=== PATIENT | male | born 2000 | race American Indian/Alaskan Native ===

== ENCOUNTER 2021-10-29 00:20 | Emergency (ER) | payer OTHER ==
[2021-10-29] MEDS ORDERED: MORPHINE 2 MG/1 ML INJ IM ONE (00:55)
[2021-10-29] MEDS ORDERED: SODIUM CHLORIDE 0.9% 1000 ML 2,000 ML IV ONE (00:55)
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
[2021-10-29 02:12] LABS: Hematocrit 35.8 % (35.5-45.6); Mean Corpuscular HGB Conc 34 % (32-34); Mean Corpuscular Volume 84 fl (84-94); Platelet Count 240 K/mm3 (140-440); Red Blood Count 4.28 M/mm3 (3.65-5.03); Red Cell Distribution Width 15.3 % (13.2-15.2)
[2021-10-29 02:21] LABS: Alanine Aminotransferase 16 units/L (7-56); Albumin 4.4 g/dL (3.9-5); Blood Urea Nitrogen 12 mg/dL (9-20); Calcium 8.2 mg/dL (8.4-10.2); Hemolysis Index 21
[2021-10-29 02:28] LABS: BUN/Creatinine Ratio 24
[2021-10-29 03:01] VITALS: BP 110/65
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
[2021-10-29] MEDS ORDERED: MORPHINE 2 MG/1 ML INJ ONE (03:18)
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
[2021-10-29] MEDS ORDERED: MORPHINE 2 MG/1 ML INJ IV ONE (03:24)
[2021-10-29 04:07] LABS: Mucus,Urine FEW /HPF
[2021-10-29 04:11] LABS: Amphetamine Screen,Urine PRESUMPTIVE NEGATIVE; Benzodiazepines Screen,Urine PRESUMPTIVE NEGATIVE; Cannabinoid Screen,Urine PRESUMPTIVE POSITIVE; Cocaine Screen,Urine PRESUMPTIVE NEGATIVE; Methadone Screen,Urine PRESUMPTIVE NEGATIVE; Opiate Screen,Urine PRESUMPTIVE NEGATIVE
[2021-10-29 04:34] LABS: Color,Urine Yellow (Yellow)
[2021-10-29 04:35] LABS: WBC,Urine < 1.0 /HPF (0.0-6.0)
== END 2021-10-29 05:31 ==
LOC: ED 00:20 → EEVIPCON 00:20 → ED 05:31
DX: F12.280 Cannabis dependence with cannabis-induced anxiety disorder (principal); Z98.890 Other specified postprocedural states; Z79.899 Other long term (current) drug therapy; V87.7XXA Person injured in collision between other specified motor vehicles (traffic), initial encounter; Y93.89 Activity, other specified; Y92.488 Other paved roadways as the place of occurrence of the external cause; Y99.8 Other external cause status
CPT/HCPCS: 36415; 70450; 71260; 72125; 74177; 80053; 80307; 81001; 82550; 83690; 84484; 85027; 96361; 96372; 96374; 99284; J2270; J7030; Q9967